=== PATIENT | male | born 1980 | race Caucasian/White ===

== ENCOUNTER 2018-10-24 12:41 | Emergency (ER) | payer BC, OTHER ==
[~2018-10-24] VITALS: Ht 190.5 cm; Wt 113.4 kg
[2018-10-24 12:51] VITALS: BP 150/70
[2018-10-24] MEDS ORDERED: IPRATROPIUM BROM 0.5 MG/2.5ML INH SOL NEB ONE (13:00)
[2018-10-24] MEDS ORDERED: ALBUTEROL SULF 2.5 MG/0.5ML(0.5%) NEB SOLN NEB ONE (13:00)
== END 2018-10-24 15:50 | disposition home or self-care (01) ==
LOC: ER 12:49
DX: J02.9 Acute pharyngitis, unspecified (principal)
CPT/HCPCS: 71046; 94640; 99283; J7611; J7644; 93005

== ENCOUNTER → 2019-10-24 | Outpatient (CLI) | payer BC ==
[2019-10-24 12:08] LABS: Urine WBC None Seen /hpf (0 - 3)
[2019-10-24 12:16] LABS: Basophils # (auto) 0.1 uL; Basophils % (auto) 1.2 % (0.0-2.0); Eosinophils # (auto) 0.1 uL; Eosinophils % (auto) 1.6 % (0.0-7.0); Hematocrit 48.2 % (41.0-53.0); Hemoglobin 16.4 g/dL (13.5-17.5); Lymphocytes # (auto) 1.6 uL; Lymphocytes % (auto) 21.2 % (10.0-50.0); Mean Corpuscular Hemoglobin 30.7 pg (28.0-32.0); Mean Corpuscular Volume 90.4 fL (80.0-100.0); Monocytes # (auto) 0.6 uL; Monocytes % (auto) 7.3 % (0.0-12.0); Neutrophils # (auto) 5.3 uL; Neutrophils % (auto) 68.7 % (37.0-80.0); Platelet Count (auto) 260 10^3/uL (140-450); Red Blood Cells 5.34 10^6/uL (4.5-5.90); Red Cell Distribution Width 13.4 % (11.8-14.3); White Blood Cell 7.7 10^3/uL (4.4-10.8)
[2019-10-24 12:48] LABS: Potassium 4.9 mmol/L (3.5-5.1)
[2019-10-24 12:54] LABS: BUN/Creatinine Ratio 16.7; Bilirubin, Total 0.5 mg/dL (0.2-1.0); Total Protein 7.5 g/dL (6.4-8.2)
[2019-10-24 13:00] LABS: Urine Bacteria NONE SEEN /hpf (None Seen); Urine Blood Negative /uL (Negative); Urine Specific Gravity 1.017 (1.001-1.035)
== END | disposition home or self-care (01) ==
LOC: LAB 11:53
PROVIDERS: ATTEND Nurse Practitioner
DX: Z00.00 Encounter for general adult medical examination without abnormal findings (principal); E78.5 Hyperlipidemia, unspecified; R53.83 Other fatigue
CPT/HCPCS: 36415; 80053; 80061; 81001; 84403; 84443; 85025